=== PATIENT | male | born 1965 | race Two or more races ===

== ENCOUNTER 2016-10-17 06:40 | Emergency (ER) | payer SELFPAY ==
[~2016-10-17] VITALS: Ht 152.4 cm; Wt 68.0 kg
--- NOTE | 2016-10-17 13:00 | NUR ---
ASSUME PT CARE. HERE FOR ETOH. NO OBVIOUS TRAUMA NOTED. SLEEPING, EASILY AROUSABLE. VERBALLY RESPONSIVE. WILL CONTINUE TO MONITOR.
--- NOTE | 2016-10-17 13:16 | NUR ---
PT AWAKE. AMBULATORY W/ STEADY GAIT. WANTS TO GO HOME. AAOX3. PROVIDED W/ ORAL FLUIDS. D/C IN STABLE CONDITION.
[2016-10-17 13:20] VITALS: BP 142/84
== END 2016-10-17 13:20 | disposition home or self-care (01) ==
LOC: ER 06:45
DX: F10.129 Alcohol abuse with intoxication, unspecified (principal); I10 Essential (primary) hypertension; E11.9 Type 2 diabetes mellitus without complications; F17.200 Nicotine dependence, unspecified, uncomplicated; Z59.0 Homelessness
CPT/HCPCS: A4606; Z7610